=== PATIENT | male | born 1950 | race Caucasian/White ===

== ENCOUNTER → 2017-10-28 | Day surgery (SDC) | payer OTHER ==
--- NOTE | 2017-10-25 15:15 | History & Physical Pre-Op ---
General Information and HPI History of Present Illness: Monty is a 67-year-old male with a long-standing and worsening complaint of right heel pain. The patient has undergone an extended course of conservative care, including shoe gear and activity modification, rest, immobilization and courses of NSAIDs. None of this is yielded him any significant relief. The patient presents today for preoperative surgical consultation. Allergies/Medications Allergies: Coded Allergies: No Known Allergies (10/24/17) Past History Medical History Cardiovascular: hypertension, hyperlipidemia Respiratory: asthma, bronchitis Gastrointestinal: peptic ulcer disease Surgical History Pertinent Surgical History: hernia repair-incisional Review of Systems Review of Systems: Unremarkable except for that noted administration Exam & Diagnostic Data Physical Exam: Lungs clear bilaterally. Heart sounds rate and rhythm regular. Lower extremity physical exam demonstrates intact pedal pulses bilaterally. Pulses dorsalis pedis and posterior tibial arteries are palpable bilaterally. Patient without any sensory motor deficits. Deep tendon reflexes grossly intact. Patient noted to have significant pain with palpation to the plantar medial aspect of the right heel. Ankle range of motion noted to be diminished, especially in dorsiflexion. Negative Tinel sign noted with percussion the posterior tibial nerve. Assessment/Plan Assessment/Plan: Plantar fasciitis and gastrocnemius equinus right. A lengthy discussion reviewing both surgical and conservative options was held the patient at bedside and the patient elects to go forward with surgery despite the risks. As Ranked By This Provider Problem List: 1. Plantar fascial fibromatosis Attending MD Review Statement Attending Statement Attending MD Statement: examined this patient
[~2017-10-28] VITALS: Ht 175.3 cm; Wt 100.2 kg
[~2017-10-28] MED LIST: AMLODIPINE BESYL5 M1 PO; FLOMAX0.4 M1 PO; LIPITOR40 M1 PO; LISINOPRIL-HCT1 EACH PO; MULTIVITAMINS1 EAC9 PO; OMEPRAZOLE20 M3 PO; PROAIR HFA8.5 GM INH; VENLAFAXINE HC150 MG PO
--- NOTE | 2017-10-28 08:14 | Operative Report ---
Operative/Inv Procedure Report Surgery Date: 10/28/17 Name of Procedure: 1 gastrocnemius recession right 2 plantar fasciotomy right 3 plantar fasciectomy right 4 intraoperative administration of ankle block anesthesia Pre-Operative Diagnosis: 1 gastrocnemius equinus right 2 plantar fasciitis right Post-Operative Diagnosis: The same Estimated Blood Loss: scant Surgeon/Forming Acid Dumper: Onel Chavez DPM Anesthesia: moderate sedation, block Operative/Procedure Note Note: After obtaining informed consent the patient was brought to the operating room and placed on the operating table in supine position. The patient isn't securely fastened to the operating table utilizing safety belt. After Mr.'s of IV sedation, 10 mL of 0.5% Marcaine plain was infiltrated about the patient's right ankle. A well-padded calf tourniquet was placed about the patient's right upper calf. 2 g of Ancef were delivered intravenously times one dose. Right lower extremity was then scrubbed, prepped and draped in usual aseptic manner. The right lower extremity was elevated to examine to limb, at which point the calf tourniquet was inflated 250 mmHg. Attention was then directed to the distal medial leg, where a linear incision was made 2 fingerbreadths distal to the medial have a gastrocnemius muscle. The dissection was then carried down to the medial margin of the gastroc fascia, where an interval was developed between the peritenon and the fascia. The sural nerve was identified and protected. A gastrocnemius recession was then performed. The deep tissues reapproximated 4-0 Vicryl and the skin edges reapproximated 4-0 nylon. Attention was then directed to the distal foot, where portals well-developed overlying the medial margin of the plantar fascia. The tissue was then ablated with 4 W of radiofrequency energy utilizing the Invisible Puppy micro-ablator. The dissection was then carried down to the medial margin of the plantar fascia which was released from its origin on the medial tubercle calcaneal tuberosity. The incisions were closed with 4-0 Vicryl and dressed with Xeroform. Followed by the application of Island dressings and Coban. The patient was noted to tolerate both procedure and anesthesia well and the patient was transported from the operating room to recovery with vital signs stable best assess intact all digits right foot.
== END ==
LOC: STS 01:21
DX: M21.6X1 Other acquired deformities of right foot (principal); M72.2 Plantar fascial fibromatosis; I10 Essential (primary) hypertension; J45.909 Unspecified asthma, uncomplicated
CPT/HCPCS: J0690; J1885; J2001; J2250

== ENCOUNTER 2017-12-29 13:21 | Emergency (ER) | payer OTHER ==
[~2017-12-29] VITALS: Ht 175.3 cm; Wt 104.3 kg
[2017-12-29 13:26] VITALS: BP 171/91
--- NOTE | 2017-12-29 16:17 | ED HEADACHE COMPLAINT ---
History of Present Illness General Chief Complaint: Headache Stated Complaint: SIB WALK IN, BERRY X 2 Source: patient Exam Limitations: no limitations Vital Signs & Intake/Output Vital Signs & Intake/Output Vital Signs Date Time Temp Pulse Resp B/P B/P Pulse O2 O2 Flow FiO2 Mean Ox Delivery Rate 12/29 1326 98.0 51 16 171/91 95 Room Air Allergies Coded Allergies: No Known Allergies (10/24/17) Reconcile Medications Albuterol Sulfate (Proair Hfa) 90 MCG HFA.AER.AD 2 PUF INH AD PRN BRONCHIAL ASTHMA (Reported) Amlodipine Besylate 5 MG TABLET 1 TAB PO DAILY BP (Reported) Atorvastatin Calcium (Lipitor) 40 MG TABLET 1 TAB PO QPM CHOLESTEROL ( Reported) Lisinopril/Hydrochlorothiazide (Lisinopril-Hctz 20-12.5 MG Tab) 20 MG-12.5 MG TABLET 1 TAB PO DAILY BP (Reported) Multiple Vitamin (Multivitamins) 1 EACH TABLET 1 TAB PO DAILY SUPPLEMENT ( Reported) Omeprazole 20 MG TABLET.DR 1 TAB PO DAILY GI (Reported) Tamsulosin HCl (Flomax) 0.4 MG CAP.ER.24H 1 CAP PO DAILY PROSTATE (Reported) Venlafaxine HCl (Venlafaxine HCl ER) 150 MG CAP.ER.24H 1 CAP PO DAILY MENTAL HEALTH (Reported) Triage Note: PT STATES HE HAS HAD A BAD BERRY FOR THE PAST 3 DAYS THAT HAVE BEEN CONSTANT. PT REPORTS TAKING EXCEDRIN TENSION BERRY WITH NO RELIEF. PT DENIES FALLING AND HITTING HIS HEAD. Triage Nurses Notes Reviewed? yes HPI: Patient is a 67-year-old male with past medical history of chronic tension headaches who presents today for a headache which he reports has been unrelenting. He has been taking Excedrin for his symptoms, but they have been refractory to this medication of late. He has no history of diagnosed migraines , or other headache syndromes. His symptoms were not acute in onset and would not be considered "thunderclap." He has no nausea, vomiting, neurologic features, depressed GCS, or other symptoms concerning for ICH. Upon my initial encounter history generally well-appearing and nontoxic. Past History Travel History Traveled to [place] past 21 day No Medical History Any Pertinent Medical History? see below for history Cardiovascular: hypertension, hyperlipidemia Respiratory: asthma, bronchitis Gastrointestinal: peptic ulcer disease Surgical History Surgical History: hernia repair-incisional Psychosocial History What is your primary language Belarusian Tobacco Use: Quit >30 days ago ETOH Use: denies use Illicit Drug Use: denies illicit drug use Family History Hx Contributory? Yes Review of Systems Review of Systems Constitutional: Reports: see HPI. Eyes: Reports: no symptoms. Ears, Nose, Throat, Mouth: Reports: no symptoms. Respiratory: Reports: no symptoms. Cardiovascular: Reports: no symptoms. Gastrointestinal/Abdominal: Reports: no symptoms. Genitourinary: Reports: no symptoms. Musculoskeletal: Reports: no symptoms. Skin: Reports: no symptoms. Neurological/Psychological: Reports: see HPI, headache. Hematologic/Endocrine: Reports: no symptoms. Endocrine: Reports: no symptoms. Immunologic/Allergic: Reports: no symptoms. All Other Systems: Reviewed and Negative Physical Exam Physical Exam Cranial Nerves: normal hearing, normal speech, PERRL Comments: HEENT: Inspection of the head reveals a normocephalic cranium with no signs of trauma. Ophtho: Extraocular muscles are intact and pupils are equal and reactive to light bilaterally with no afferent pupillary defect. The sclera are noninjected , and there is no obvious discharge. Neck: The trachea is midline, there is no obvious asymmetry or mass over the thyroid, and there is no midline cervical spine tenderness Respiratory: The lungs are clear and equal to auscultation bilaterally without wheezes, rales, or rhonchi. The patient exhibits no signs of labored breathing. Cardiac: Regular rhythm and non-tachycardic without appreciable murmurs on auscultation. No obvious JVD. GI: Examination of the abdomen reveals no significant focal tenderness in any of the four quadrants. There is negative Maxwell's sign, negative McBurney's point tenderness, negative Noel sign, negative Barnard-Hodgson sign, and no signs of peritonitis whatsoever on percussion or deep palpation. The skin is intact with no sign of trauma or infection. : Deferred Neuro: The patient is oriented to person, place, time, and situation, with no obvious focal motor deficits. There were no sensory deficits, and the patient exhibit purposeful movement of all 4 extremities. Cranial nerves II through XII are intact, and gait is normal. Behavioral: Calm and cooperative Dermatologic: Dermatologic examination reveals no diffuse rashes or exanthems, no petechiae, no ecchymoses, and no other signs of erythema or infection. Core Measures Sepsis Present: No Sepsis Focused Exam Completed? No Progress Differential Diagnosis: carotid dissection, cav sinus thromb, cluster BERRY, encephalitis, IC mass/tumor, intracranial Hem., meningitis, migraine BERRY, musculoskeletal pain, post LP headache, subarach. Hem., tension BERRY, temporal arteritis Plan of Care: Current Medications Sig/Dong Start time Last Medication Dose Stop Time Status Admin Ketorolac 30 MG ONCE ONE 12/29 163 UNVr 12/29 Tromethamine 12/29 1631 1648 (Toradol) Metoclopramide HCl 10 MG ONCE ONE 12/29 163 UNVr 12/29 (Reglan) 12/29 1631 1648 Comments: Patient presents today for headache which is similar to symptoms he has had chronically. He has had some success with Excedrin but reports no improvement with that modality today. I prescribed a dosage of ketorolac and metoclopramide with excellent effect. No sign of ICH or thunderclap onset; no advanced imaging indicated. Will follow up with neurology for reassessment. MSE otherwise negative, stable at time of dischage. Departure Departure Time of Disposition: 1725 Disposition: HOME OR SELF CARE Condition: Stable Clinical Impression Primary Impression: Headache Qualifiers: Headache type: unspecified Headache chronicity pattern: episodic headache Intractability: not intractable Qualified Code: R51 - Headache Referrals: Alverto RODARTE,Sara Fung (PCP/Family) Additional Instructions: Please use ibuprofen with your Excedrin, assuming that the Excedrin you have been using is the one that contains acetaminophen rather than ibuprofen. Call this number for an appointment with our neurologists (headache specialists) for further evaluation and recommendations. If your symptoms change or worsen significantly, please return to the emergency department for reevaluation. Departure Forms: Customer Survey General Discharge Information
== END 2017-12-29 17:51 ==
LOC: ERH 13:21
DX: R51 Headache (principal)
CPT/HCPCS: 96372; J1885